=== PATIENT | female | born 1985 | race Caucasian/White ===

== ENCOUNTER → 2019-02-17 | Outpatient (CLI) | payer OTHER ==
[~2019-02-17] MED LIST: ABAC300; ACEBUTCAFT PO; ACET250 PO; ACET325 PO; ACET500ER PO; ACYC800 PO; ALBU90OI INH; ALBU90OI6 INH; ALBU90OI61 INH; AMIT25 PO; AMOCLA875 PO; AMOX500 PO; AMPDEX10 PO; AMPDEX15CR PO; ASPI325 PO; AZIT250 PO; AZIT500 IV; BCP; BCP'S PO; BENZ100A PO; BUPR150ER PO; BUTONI; CEPH250SUA PO; CEPH500 PO; CIPR500 PO; CITA20 PO; CLIN1TS TOP; CLON.5 PO; CODACEE120 PO; DABI150C PO; DEXILANT PO; DEXL60CA3 PO; DHE; DHE IM; DHE PO; DIAZ10 PO; DICL25ER PO; DICLOFENAC POTASSIUM; DILAUDID 11 MG/1 ML PO; DIPATR PO; DOCU100 PO; DOXY100 PO; DULO30 PO; ED-SPAZ0.125 MG SL; ENOX100I; ENOX100I SQ; ENOX30I SQ; ENOX40I SQ; ENOX80I SC; ESZO3 PO; Emla Cream30 GM TP; FENT25TP TOP; FENTANYL 12 MCG/HR TOP; FIBER CHOICE; FIBER LAX625 MG PO; FLUC200 PO; FLUO20 PO; GABA300 PO; GABA600 PO; HYCOTUSS; HYDACE5 PO; HYDACE7.5 PO; HYDACE7.5L PO; HYDHCL25 PO; HYDMOR4 PO; HYOMAX; IBUP200 PO; KAPIDEX; LANS15EC PO; LEVSOD25 PO; LEVSOD75 PO; LORA1 PO; MAGIC MOUTHWASH; MELA3 PO; MEPRON PO; META800 PO; METPRE4DP PO; MULVITA PO; MUPI2TO TOP; NAPR500 PO; NATURE THYROID PO; NORT25 PO; NORTEL; NORTEL PO; NYST100TO TOP; NYSTRI30T TOP; ONDA8 PO; ONDA8ODT MM; OXYACE5T PO; OXYACE7.5T PO; OXYC20L PO; PANT40 PO; PARO20 PO; PARO30 PO; PAROXETINE PO; PENVK500 PO; PNV PRENATAL P1 EACH PO; PREG100 PO; PROB500 PO; PROC10 PO; PROCODE120 PO; PROM25 INJ; PROM25 PO; PROM25S PR; PROMETHAZINE IV; PROP60 PO; Peridex480 ML SS; RIFA300 PO; RXALBOI INH; RXCLIN PO; RXHYDACE PO; RXHYDMOR2 PO; RXPROCODSY PO; RXTRAM50 PO; SCOPTP TOP; STADOL; SUMA25 PO; TIZANIDINE HCL4 MG PO; TOPI100 PO; TOPI50 PO; TRAM50 PO; TRAZ100 PO; TRAZ50 PO; VENL75ER PO; WARF5 PO; XARELTO20 MG PO; ZIPSOR25 MG PO; ZOLM5 PO; ZOLM5ODT MM; Zofran Odt4 MG SL; [UNRECOGNIZED DRUG - CODE] PO; [UNRECOGNIZED DRUG - OTHER]; [UNRECOGNIZED DRUG - OTHER]; [UNRECOGNIZED DRUG - OTHER]; [UNRECOGNIZED DRUG - OTHER] PO; [UNRECOGNIZED DRUG - OTHER] PO; [UNRECOGNIZED DRUG - REMARK] PO
[2019-02-17 17:04] LABS: BASOPHILS ABSOLUTE AUTO 0.03 K/mm3 (0.00-0.23); BASOPHILS PERCENT AUTO 0 % (0-2); EOSINOPHILS ABSOLUTE AUTO 0.05 K/mm3 (0.00-0.68); EOSINOPHILS PERCENT AUTO 1 % (0-6); Hematocrit 41.8 % (33.0-51.0); Hemoglobin 14.3 g/dL (11.5-16.0); IMMATURE GRAN ABSOLUTE AUTO 0.02 K/mm3 (0.00-0.10); IMMATURE GRAN PERCENT AUTO 0 % (0-1); LYMPHOCYTES ABSOLUTE AUTO 2.72 K/mm3 (0.84-5.20); LYMPHOCYTES PERCENT AUTO 26 % (21-46); MONOCYTES ABSOLUTE AUTO 0.44 K/mm3 (0.16-1.47); MONOCYTES PERCENT AUTO 4 % (4-13); Mean Corpuscular HGB 29.9 pg (26.0-34.0); Mean Corpuscular HGB Conc 34.2 g/dL (31.5-36.5); Mean Corpuscular Volume 87 fL (80-100); Mean Platelet Volume 9.5 fL (9.1-12.4); NEUTROPHILS ABSOLUTE AUTO 7.27 K/mm3 (1.96-9.15); NEUTROPHILS PERCENT AUTO 69 % (41-73); Platelet Count 283 K/mm3 (150-400); RDW Coefficient Variation 12.8 % (11.7-14.2); RDW Standard Deviation 40.7 fL (35.1-46.3); Red Blood Cell Count 4.78 M/mm3 (3.80-5.20); White Blood Cell Count 10.53 K/mm3 (4.00-11.30)
[2019-02-17 17:31] LABS: Alanine Aminotransfer (ALT/SGP 24 U/L (12-78); Albumin, Blood 3.9 g/dL (3.4-5.0); Albumin/Globulin Ratio 1.1 (0.8-1.8); Alk Phos 91 U/L (40-126); Anion Gap 6 mmol/L (6-16); Aspartate Aminotrans (AST/SGOT 24 U/L (12-37); Bilirubin, Total 0.2 mg/dL (0.1-1.0); Blood Urea Nitrogen 5 mg/dL (8-24); Bun/Creatinine Ratio 6.5 (12.0-20.0); CO2, Blood 28 mmol/L (21-32); Calcium, Blood 9.2 mg/dL (8.5-10.1); Chloride, Blood 104 mmol/L (98-108); Creatinine, Blood 0.77 mg/dL (0.40-1.00); Globulin, Blood 3.6 g/dL (2.2-4.0); Glomerular Filtration Rate >60 (60-); Glucose, Blood 99 mg/dL (70-99); Potassium, Blood 3.8 mmol/L (3.5-5.5); Sodium, Blood 138 mmol/L (136-145); Thyroid Stimulating Hormone 2.721 uIU/mL (0.360-4.800); Total Protein, Blood 7.5 g/dL (6.4-8.2)
== END | disposition home or self-care (01) ==
LOC: LAB SHORT 16:53 → LAB EV 16:53
PROVIDERS: Physician Assistant
DX: R11.2 Nausea with vomiting, unspecified (principal); R53.83 Other fatigue
CPT/HCPCS: 80053; 83690; 84443; 85025

== ENCOUNTER → 2019-04-22 | Outpatient (CLI) | payer OTHER ==
[2019-04-24 15:07] LABS: HPV 16 Negative (Negative); HPV 18 Negative (Negative); HPV OTHER HR TYPES Negative (Negative)
== END | disposition home or self-care (01) ==
LOC: LAB 15:00 → LAB SHORT 15:00
PROVIDERS: Obstetrics & Gynecology
DX: Z01.419 Encounter for gynecological examination (general) (routine) without abnormal findings (principal)
CPT/HCPCS: 87624; G0123

== ENCOUNTER → 2019-11-17 | Outpatient (CLI) | payer OTHER ==
[2019-11-17 14:28] LABS: BASOPHILS ABSOLUTE AUTO 0.04 K/mm3 (0.00-0.23); BASOPHILS PERCENT AUTO 0 % (0-2); EOSINOPHILS ABSOLUTE AUTO 0.06 K/mm3 (0.00-0.68); EOSINOPHILS PERCENT AUTO 1 % (0-6); Hematocrit 45.6 % (33.0-51.0); Hemoglobin 15.2 g/dL (11.5-16.0); IMMATURE GRAN ABSOLUTE AUTO 0.02 K/mm3 (0.00-0.10); IMMATURE GRAN PERCENT AUTO 0 % (0-1); LYMPHOCYTES ABSOLUTE AUTO 2.67 K/mm3 (0.84-5.20); LYMPHOCYTES PERCENT AUTO 29 % (21-46); MONOCYTES ABSOLUTE AUTO 0.42 K/mm3 (0.16-1.47); MONOCYTES PERCENT AUTO 5 % (4-13); Mean Corpuscular HGB 28.5 pg (26.0-34.0); Mean Corpuscular HGB Conc 33.3 g/dL (31.5-36.5); Mean Corpuscular Volume 85 fL (80-100); Mean Platelet Volume 9.6 fL (9.1-12.4); NEUTROPHILS ABSOLUTE AUTO 6.04 K/mm3 (1.96-9.15); NEUTROPHILS PERCENT AUTO 65 % (41-73); Platelet Count 282 K/mm3 (150-400); RDW Coefficient Variation 13.3 % (11.7-14.2); RDW Standard Deviation 41.3 fL (35.1-46.3); Red Blood Cell Count 5.34 M/mm3 (3.80-5.20); White Blood Cell Count 9.25 K/mm3 (4.00-11.30)
[2019-11-17 14:39] LABS: Alanine Aminotransfer (ALT/SGP 26 U/L (12-78); Albumin, Blood 3.9 g/dL (3.4-5.0); Alk Phos 91 U/L (40-126); Anion Gap 13 mmol/L (6-16); Aspartate Aminotrans (AST/SGOT 21 U/L (12-37); Bilirubin, Total 0.2 mg/dL (0.1-1.0); Blood Urea Nitrogen 6 mg/dL (8-24); Bun/Creatinine Ratio 8.3 (12.0-20.0); CO2, Blood 21 mmol/L (21-32); Chloride, Blood 109 mmol/L (98-108); Creatinine, Blood 0.72 mg/dL (0.40-1.00); Globulin, Blood 4.1 g/dL (2.2-4.0); Glomerular Filtration Rate >60 (60-); Glucose, Blood 97 mg/dL (70-99); Potassium, Blood 3.7 mmol/L (3.5-5.5); Sodium, Blood 143 mmol/L (136-145)
== END | disposition home or self-care (01) ==
LOC: LAB EV 14:24 → LAB SHORT 14:24
PROVIDERS: Physician Assistant Medical
DX: R11.2 Nausea with vomiting, unspecified (principal); R19.7 Diarrhea, unspecified
CPT/HCPCS: 80053; 83690; 85025

== ENCOUNTER 2021-03-01 11:21 | Inpatient (IN) | payer MEDICARE, OTHER ==
[~2021-03-01] VITALS: Ht 162.6 cm; Wt 98.4 kg
[~2021-03-01 11:21] MED LIST changes: -XARELTO20 MG PO
[2021-03-01 15:42] LABS: Hematocrit 44.6 % (33.0-51.0); Mean Corpuscular HGB 28.4 pg (26.0-34.0); Mean Corpuscular HGB Conc 33.6 g/dL (31.5-36.5); Mean Corpuscular Volume 85 fL (80-100); RDW Coefficient Variation 13.2 % (11.7-14.2); RDW Standard Deviation 41.3 fL (35.1-46.3); Red Blood Cell Count 5.28 M/mm3 (3.80-5.20); White Blood Cell Count 3.87 K/mm3 (4.00-11.30)
[2021-03-01 15:44] LABS: Mean Platelet Volume 10.2 fL (9.1-12.4)
[2021-03-01 15:57] LABS: Alanine Aminotransfer (ALT/SGP 43 U/L (12-78); Albumin, Blood 3.3 g/dL (3.4-5.0); Albumin/Globulin Ratio 0.8 (0.8-1.8); Alk Phos 73 U/L (50-136); Anion Gap 8 mmol/L (6-16); Aspartate Aminotrans (AST/SGOT 78 U/L (12-37); Bilirubin, Total 0.3 mg/dL (0.1-1.0); Blood Urea Nitrogen 8 mg/dL (8-24); Bun/Creatinine Ratio 12.7 (12.0-20.0); CO2, Blood 20 mmol/L (21-32); Calcium, Blood 8.4 mg/dL (8.5-10.1); Chloride, Blood 109 mmol/L (98-108); Creatinine, Blood 0.63 mg/dL (0.40-1.00); Ferritin, Serum 179 ng/mL (8-252); Globulin, Blood 3.9 g/dL (2.2-4.0); Glomerular Filtration Rate >60 (60-); Glucose, Blood 92 mg/dL (70-99); Lactate Dehydrogenase (Ld),Bld 786 U/L (100-240); Potassium, Blood 3.5 mmol/L (3.5-5.5); Sodium, Blood 137 mmol/L (136-145); Total Protein, Blood 7.2 g/dL (6.4-8.2)
[2021-03-01 16:01] LABS: Troponin I <0.015 ng/mL (0.000-0.040)
[2021-03-01 16:02] LABS: BAND PERCENT MAN 3 % (0-8); BASOPHILS ABSOLUTE MAN 0.03 K/mm3 (0.00-0.23); BASOPHILS PERCENT MAN 1 % (0-2); EOSINOPHILS PERCENT MAN 0 % (0-6); LYMPHOCYTES ABSOLUTE MAN 0.92 K/mm3 (0.84-5.20); LYMPHOCYTES PERCENT MAN 24 % (21-46); MONOCYTES ABSOLUTE MAN 0.03 K/mm3 (0.16-1.47); MONOCYTES PERCENT MAN 1 % (4-13); NEUTROPHILS ABSOLUTE MAN 2.86 K/mm3 (1.96-9.15); SEG NEUTROPHILS PERCENT MAN 71 % (41-73); TOTAL CELLS COUNTED 100
[2021-03-01 16:03] LABS: Platelet Count 136 K/mm3 (150-400)
[2021-03-01] MEDS ORDERED: MS Contin15 MG PO (16:16)
[2021-03-01] MEDS ORDERED: Ventolin/Prove6.7 GM INH (16:17)
[2021-03-01] MEDS ORDERED: AMPDEX10 PO (16:18)
[2021-03-01] MEDS ORDERED: Amphetamine Sal20 MG PO (16:18)
[2021-03-01] MEDS ORDERED: AMITRIPTYLINE H25 MG PO (16:19)
[2021-03-01] MEDS ORDERED: ACET250 PO (16:19)
[2021-03-01] MEDS ORDERED: DEXILANT60 MG PO (16:19)
[2021-03-01] MEDS ORDERED: PAXIL40 M1 PO (16:20)
[2021-03-01] MEDS ORDERED: BACLOFEN10 M4 PO (16:20)
[2021-03-01] MEDS ORDERED: XARELTO20 MG PO (16:56)
[2021-03-01] MEDS ORDERED: Dilaudid 2 mg Ta2 MG PO (16:57)
[2021-03-01] MEDS ORDERED: PSEUDOEPHEDRINE30 M1 PO (16:58)
--- NOTE | 2021-03-01 19:16 | NUR ---
SHIFT SUMMARY ED ADMIT AT SHIFT CHANGE. PATIENT SHORT OF BREATH WITH ANY MOVEMENT, MAINTAINING OXYGEN SATURATION AT 92% AT 4-6L/NC. SETTLED INTO ROOM. REPORT GIVEN TO ONCOMING RN.
[2021-03-01] MEDS ORDERED: ONDA4ODT PO (20:16)
[2021-03-01] MEDS ORDERED: PROM25 PO (20:17)
[2021-03-01] MEDS ORDERED: ZOLM5 PO (20:22)
[2021-03-01] MEDS ORDERED: ALBUTEROL INH (20:54)
[2021-03-02 05:19] LABS: BASOPHILS PERCENT AUTO 0 % (0-2); EOSINOPHILS PERCENT AUTO 0 % (0-6); Hematocrit 39.9 % (33.0-51.0); Hemoglobin 13.5 g/dL (11.5-16.0); IMMATURE GRAN ABSOLUTE AUTO 0.01 K/mm3 (0.00-0.10); IMMATURE GRAN PERCENT AUTO 1 % (0-1); LYMPHOCYTES ABSOLUTE AUTO 0.64 K/mm3 (0.84-5.20); LYMPHOCYTES PERCENT AUTO 38 % (21-46); MONOCYTES PERCENT AUTO 6 % (4-13); Mean Corpuscular HGB Conc 33.8 g/dL (31.5-36.5); Mean Corpuscular Volume 83 fL (80-100); Mean Platelet Volume 10.2 fL (9.1-12.4); NEUTROPHILS ABSOLUTE AUTO 0.94 K/mm3 (1.96-9.15); NEUTROPHILS PERCENT AUTO 56 % (41-73); Platelet Count 150 K/mm3 (150-400); RDW Coefficient Variation 13.2 % (11.7-14.2); Red Blood Cell Count 4.83 M/mm3 (3.80-5.20); White Blood Cell Count 1.69 K/mm3 (4.00-11.30)
--- NOTE | 2021-03-02 05:36 | NUR ---
SHIFT SUMMARY: AOX3, ANXIOUS MOST OF THE TIME. 1 ASSIST TO THE BSC DUE TO DIZZINESS. ORTHOSTATICS COMPLETED NORMAL. LUNG SOUNDS CLEAR IN UPPER LOBES BUT CRACKLES IN BASES. DYSPENIC WITH TACHYPNEA. CONT. PULSE OX ON SATS AVERAGE 88-91% AT REST ON 4L OF O2. COUGH NON-PRODUCTIVE. STATES SHE HAS MUCUS THAT GETS STUCK IN HER THROAT. RT STARTED HER ON INSPIROMETER. HR SINUS. ABDOMIN SOFT, HYPERACTIVE BT. HX OF IBS WITH TWO LOOSE STOOLS TONIGHT. NO EDEMA NOTED. IV IN LEFT SHOULDER SLIGHTLY HOLDING BUT FLUSHES. AT RISK OF FALLING OUT. INFORMED CHARGE THAT SHE WILL NEED A POWERGLIDE. D-DIMER 0.87, WBC DROPPED TO 1.69. VS WNL EXCEPT RESPIRATIONS ARE FROM 20-40 DEPENDED ON MOVEMENT. WILL REPORT TO DAYSHIFT. CALL LIGHT IS IN REACH.
[2021-03-02 05:54] LABS: Anion Gap 10 mmol/L (6-16); Blood Urea Nitrogen 10 mg/dL (8-24); Bun/Creatinine Ratio 19.6 (12.0-20.0); CO2, Blood 18 mmol/L (21-32); Calcium, Blood 8.2 mg/dL (8.5-10.1); Chloride, Blood 112 mmol/L (98-108); Creatinine, Blood 0.51 mg/dL (0.40-1.00); Glomerular Filtration Rate >60 (60-); Glucose, Blood 130 mg/dL (70-99); Potassium, Blood 2.8 mmol/L (3.5-5.5); Sodium, Blood 140 mmol/L (136-145)
--- NOTE | 2021-03-02 11:23 | NUR ---
UPON ASSUMING CARE OF PT AT SHIFT CHANGE, PER REPORT PT WAS ON 4 L/MIN NC. DURING MY ASSESSMENT, SHE WAS ACTUALLY ON 5 L/MIN NC, OXIMETRY SHOWED 88-89% AND SHE WOULD DESAT TO 84-86% WITH TALKING OR MOVING. OXYGEN INCREASED TO 6 L/MIN NC AND HUMIDIFICATION ADDED. RESULTING SATURATION WENT HIGH 90%, BUT SHE WAS UNABLE TO MAINTAIN THIS, AND DESATTED TO 85%. UPON GETTING TO BSC AT ~ 0950, O2 SAT DROPPED TO 74%, C/O SOME DIZZINESS. COARSE CRACKLES NOTED IN RLL, OTHER LUNG GERMAN CLEAR. CALL MADE TO Radha ROPER FROM RT,REQUESTING HIGH FLOW OXYGEN TUBING. UPON RT ASSESSMENT, OXYGEN INCREASED TO 10 L/MIN HIGH FLOW NC WITH O2 SAT 92-93%, AND PT GIVEN INSTRUCTIONS BY RT TO GET OOB TO CHAIR AND CHANGE HER POSITION FREQUENTLY. INCREASE IN OXYGEN NEEDS REPORTED TO DR. RUIZ AT 1100, DECISION WAS MADE TO TRANSFER PT TO PCU.
--- NOTE | 2021-03-02 11:40 | NUR ---
TELEPHONE REPORT GIVEN TO Sonia AKHTAR RN.
[2021-03-02 12:33] LABS: PCO2 Arterial 31.2 mmHg (35-45); PO2 Arterial 56.3 mmHg (80-100); pH Blood Arterial 7.39 (7.35-7.45)
[2021-03-02 13:52] LABS: Base Excess Venous -7.7 mmol/L; Bicarbonate Venous 18.8 mmol/L (24.0-30.0); PCO2 Venous 33.4 mmHg (38-42); PO2 Venous 54.1 mmHg (38-42); pH Blood Venous 7.34 (7.34-7.37)
[2021-03-02 13:58] LABS: BASOPHILS PERCENT AUTO 0 % (0-2); EOSINOPHILS PERCENT AUTO 0 % (0-6); Hematocrit 41.4 % (33.0-51.0); Hemoglobin 13.9 g/dL (11.5-16.0); IMMATURE GRAN ABSOLUTE AUTO 0.03 K/mm3 (0.00-0.10); IMMATURE GRAN PERCENT AUTO 1 % (0-1); LYMPHOCYTES ABSOLUTE AUTO 0.75 K/mm3 (0.84-5.20); LYMPHOCYTES PERCENT AUTO 12 % (21-46); MONOCYTES ABSOLUTE AUTO 0.13 K/mm3 (0.16-1.47); MONOCYTES PERCENT AUTO 2 % (4-13); Mean Corpuscular HGB 27.9 pg (26.0-34.0); Mean Corpuscular HGB Conc 33.6 g/dL (31.5-36.5); Mean Corpuscular Volume 83 fL (80-100); Mean Platelet Volume 9.9 fL (9.1-12.4); NEUTROPHILS ABSOLUTE AUTO 5.23 K/mm3 (1.96-9.15); NEUTROPHILS PERCENT AUTO 85 % (41-73); Platelet Count 170 K/mm3 (150-400); RDW Coefficient Variation 13.2 % (11.7-14.2); RDW Standard Deviation 40.5 fL (35.1-46.3); Red Blood Cell Count 4.99 M/mm3 (3.80-5.20); White Blood Cell Count 6.14 K/mm3 (4.00-11.30)
[2021-03-02 14:17] LABS: Anion Gap 9 mmol/L (6-16); Blood Urea Nitrogen 12 mg/dL (8-24); Bun/Creatinine Ratio 21.4 (12.0-20.0); CO2, Blood 19 mmol/L (21-32); Calcium, Blood 8.3 mg/dL (8.5-10.1); Chloride, Blood 113 mmol/L (98-108); Creatinine, Blood 0.56 mg/dL (0.40-1.00); Glomerular Filtration Rate >60 (60-); Glucose, Blood 140 mg/dL (70-99); Sodium, Blood 141 mmol/L (136-145)
--- NOTE | 2021-03-02 18:37 | NUR ---
SHIFT SUMMARY PATIENT ARRIVED FROM MEDICAL ON 10 L VIA HIGH FLOW NASAL CANNULA, SWITCHED OVER TO AIRVO, SATS IMPROVED AND MAINTAINING IN LOW 90S FOR REST OF SHIFT. PATIENT IS ANXIOUS AND CRIES AT TIMES, BUT IS ALERT AND ORIENTED AND CALLS APPROPRIATELY. STANDBY ASSIST TO BEDSIDE COMMODE, O2 SATS WILL DIP TO HIGH 80S WITH AMBULATION AT TIMES. PATIENT COMPLAINS OF CHILLS, BLANKET PROVIDED. PATIENT COMPLAINS OF LOW APPETITE, WATER, JUICE AND CRACKERS PROVIDED.
[2021-03-02 20:11] LABS: pH Blood Arterial 7.39 (7.35-7.45)
[2021-03-02 20:12] LABS: PCO2 Arterial 25.2 mmHg (35-45); PO2 Arterial 71.3 mmHg (80-100)
[2021-03-03 04:17] LABS: Hematocrit 41.3 % (33.0-51.0); Hemoglobin 14.1 g/dL (11.5-16.0); Mean Corpuscular HGB 28.4 pg (26.0-34.0); Mean Corpuscular HGB Conc 34.1 g/dL (31.5-36.5); Mean Corpuscular Volume 83 fL (80-100); Mean Platelet Volume 10.2 fL (9.1-12.4); Platelet Count 225 K/mm3 (150-400); RDW Coefficient Variation 13.4 % (11.7-14.2); RDW Standard Deviation 41.1 fL (35.1-46.3); Red Blood Cell Count 4.96 M/mm3 (3.80-5.20)
[2021-03-03 04:27] LABS: PO2 Arterial 68.1 mmHg (80-100)
[2021-03-03 04:28] LABS: PCO2 Arterial 25.9 mmHg (35-45); pH Blood Arterial 7.38 (7.35-7.45)
[2021-03-03 04:32] LABS: Anion Gap 8 mmol/L (6-16); Blood Urea Nitrogen 13 mg/dL (8-24); Bun/Creatinine Ratio 22.5 (12.0-20.0); CO2, Blood 18 mmol/L (21-32); Calcium, Blood 8.6 mg/dL (8.5-10.1); Chloride, Blood 116 mmol/L (98-108); Creatinine, Blood 0.58 mg/dL (0.40-1.00); Glomerular Filtration Rate >60 (60-); Glucose, Blood 133 mg/dL (70-99); Potassium, Blood 3.5 mmol/L (3.5-5.5); Sodium, Blood 142 mmol/L (136-145)
[2021-03-03 04:36] LABS: BAND PERCENT MAN 23 % (0-8); BASOPHILS PERCENT MAN 0 % (0-2); EOSINOPHILS PERCENT MAN 0 % (0-6); LYMPHOCYTES ABSOLUTE MAN 1.27 K/mm3 (0.84-5.20); LYMPHOCYTES PERCENT MAN 4 % (21-46); METAMYELOCYTE ABSOLUTE MAN 0.95 K/mm3 (0.00-0.00); METAMYELOCYTE PERCENT MAN 3 % (0-0); MONOCYTES ABSOLUTE MAN 0.95 K/mm3 (0.16-1.47); MONOCYTES PERCENT MAN 3 % (4-13); MYELOCYTE ABSOLUTE MAN 0.31 K/mm3 (0.00-0.00); MYELOCYTE PERCENT MAN 1 % (0-0); NEUTROPHILS ABSOLUTE MAN 28.39 K/mm3 (1.96-9.15); SEG NEUTROPHILS PERCENT MAN 66 % (41-73); TOTAL CELLS COUNTED 100
--- NOTE | 2021-03-03 05:32 | NUR ---
SHIFT SUMMARY PT PRESENTS VERY ANXIOUS BUT COOPERATIVE. ANXIETY APPEARS TO PLACE A HUGE ROLE IN RESPIRATORY STATUS. WHILE GETTING UP, UNCOMFORTABLE, OR IN NEED OF COMPANY, PTS ANXIETY CAUSES TACHYPNEA INTO THE 50'S. OCCASIONALLY WILL DESAT WITH THIS INTO MID 80'S. OTHERWISE, PT USUALLY 90% -94%. PT AGREED TO PRONE FOR AROUND 6HRS THIS SHIFT, DURING THIS TIME, SPO2 >97%. PT REMAINS ON AIRVO, 50L 65% FIO2. PT HAS TOLERATED GETTINGN UP TO BSC WITH ASSISTANCE WITH LINES. POWERGLIDE STABLE, DRAWS WELL. OTHERWISE, PT USING CALL LIGHT APPROPRIATELY. REMAINS IN AIRBORNE ISOLATION.
--- NOTE | 2021-03-03 19:51 | NUR ---
NO ACUTE EVENTS THIS SHIFT, PATIENT ALERT AND ORIENTED AND COOPERATIVE WITH CARE. PATIENT WAS ANXIOUS AND TEARFUL AT TIMES, CALMING DEEP BREATHING TECHNIQUES ENCOURAGED, XANAX GIVEN PER EMAR FOR ANXIETY. ON AIRVO AT START OF SHIFT, BY END OF SHIFT RT SWITCHED PATIENT OVER TO HIGH FLOW NASAL CANNULA AT 15 LPM. O2 SATS WOULD DECREASE AT TIMES TO LOW-MID 80S WITH ACTIVITY, WOULD RECOVER QUICKLY AT REST TO LOW-MID 90S. PATIENT GIVEN DEEP SEA NASAL SPRAY PER EMAR, ENDORSED SOME RELEIF OF DRY NASAL PASAGES. PATIENT WOULD REPOSITION SELF IN BED FROM SIDE TO SIDE THROUGHOUT DAY. THIS RN ASSISTED TO BEDSIDE COMMODE T/O SHIFT.
[2021-03-04 05:09] LABS: Hematocrit 40.1 % (33.0-51.0); Hemoglobin 13.5 g/dL (11.5-16.0); Mean Corpuscular HGB 28.6 pg (26.0-34.0); Mean Corpuscular HGB Conc 33.7 g/dL (31.5-36.5); Mean Corpuscular Volume 85 fL (80-100); Mean Platelet Volume 9.7 fL (9.1-12.4); Platelet Count 217 K/mm3 (150-400); RDW Coefficient Variation 13.4 % (11.7-14.2); Red Blood Cell Count 4.72 M/mm3 (3.80-5.20); White Blood Cell Count 25.37 K/mm3 (4.00-11.30)
[2021-03-04 05:36] LABS: BAND PERCENT MAN 10 % (0-8); BASOPHILS PERCENT MAN 0 % (0-2); EOSINOPHILS PERCENT MAN 0 % (0-6); LYMPHOCYTES % ATYPICAL MANUAL 1 % (0-0); LYMPHOCYTES ABSOLUTE MAN 1.26 K/mm3 (0.84-5.20); LYMPHOCYTES PERCENT MAN 4 % (21-46); MONOCYTES PERCENT MAN 0 % (4-13); MYELOCYTE ABSOLUTE MAN 0.25 K/mm3 (0.00-0.00); MYELOCYTE PERCENT MAN 1 % (0-0); NEUTROPHILS ABSOLUTE MAN 23.84 K/mm3 (1.96-9.15); SEG NEUTROPHILS PERCENT MAN 84 % (41-73); TOTAL CELLS COUNTED 100
[2021-03-04 05:48] LABS: Anion Gap 6 mmol/L (6-16); Blood Urea Nitrogen 18 mg/dL (8-24); Bun/Creatinine Ratio 29.2 (12.0-20.0); CO2, Blood 22 mmol/L (21-32); Calcium, Blood 7.9 mg/dL (8.5-10.1); Chloride, Blood 113 mmol/L (98-108); Creatinine, Blood 0.62 mg/dL (0.40-1.00); Glomerular Filtration Rate >60 (60-); Glucose, Blood 126 mg/dL (70-99); Potassium, Blood 3.4 mmol/L (3.5-5.5); Sodium, Blood 141 mmol/L (136-145)
--- NOTE | 2021-03-04 05:57 | NUR ---
SHIFT SUMMARY NO ACUTE CHANGES THIS SHIFT. VSS. REMAINS ON 15L HIFLO, PT TOLERATING THIS WELL. ANXIETY HAS PRESENTED MUCH LESS SEVERE THIS SHIFT VS LASE, INCREASED SPO2 READINGS, DECREASED WOB, AND RR 20'S INSTEAD OF 30'S-40'S. THIS APPEARS TO BE A RESULT OF THE PRN XANAX PT STARTED ON WELL IMPROVING RESPIRATORY FUNCTION. PT AGREED TO PRONE THIS SHIFT FOR AROUND 4-5 HOURS. POWERGLIE REMAINS INTACT, NOT DRAWING BLOOD CURRENTLY. REMAINS IN AIRBORE ISOLATION.
--- NOTE | 2021-03-04 18:31 | NUR ---
SHIFT SUMMARY NO ACUTE EVENTS THIS SHIFT, PT ALERT AND ORIENTED AND ABLE TO CALL APPROPRIATELY. PT ASSISTED TO RECLINER AT START OF SHIFT, STANDBY ASSIST TO BEDSIDE COMMODE FOR LINE MANAGEMENT. PT REMAINED IN RECLINER FOR REST OF SHIFT. O2 TITRATED DOWN TO 10 LPM VIA HIGH FLOW NASAL CANNULA. WITH ACTIVITY O2 SATS WOULD DECREASE TO 80S, AT TIMES WHEN PT WAS SLEEPING AND HEAD WAS LEANED FORWARD O2 SATS WOULD DECREASE TO 80S. WHEN REMINDED TO BREATH THROUGH NOSE O2 SATS WOULD RECOVER TO 90S. PT COMPLAINED OF PAIN/DISCOMFORT AT TIMES, PROVIDED PILLOWS AND BLANKETS AND ASSISTED WITH REPOSITIONING, PAIN MEDS ADMINISTERED PER EMAR.
--- NOTE | 2021-03-04 21:43 | NUR ---
RESPIRATORY PT ON 10L HIFLO AT BEGINNING OF SHIFT. AROUND 1999, PT SPO2 DOWN TO 80%. THIS RN TO ROOM. TITRATED UP TO 15L. REPOSITIONED PT. NO SUCCESS NOTED TO BRINGING PT UP ABOVE 88%. ANXIETY MEDICATION HAD ALREADY BEEN ADMINISTERED AND PT NOT PRESENTING ANXIOUS AT THIS TIME. RR 24. RT TO ROOM. UNABLE TO BRING SATS UP. PT PLACED ON AIRVO. PT NOT TOLERATING HIGH PRESSURES SO END SETTINGS CURRENTLY ARE: AIRVO 30L 70%. SPO2 92% CURRENTLY.
--- NOTE | 2021-03-05 02:22 | NUR ---
RESPIRATORY 0100 THIS RN TO ROOM. PT SPO2 80%. PT IN FOWLERS POSITION AGAIN. TITRATED UP TO 100% ON 30L DUE TO NOT TOLERATING HIGH PRESSURES. PT UP TO BSC. ANXIETY & PAIN MEDICATION ADMINISTERED. PT TOLD SHE NEEDED TO PRONE AGAIN DUE TO LOW SPO2 AND WOB. PT AGREES. PT ASSISTED WITH PRONING. PT NOW ON AIRVO 30L 70%. SPO2 94%.
[2021-03-05 04:38] LABS: BASOPHILS ABSOLUTE AUTO 0.14 K/mm3 (0.00-0.23); BASOPHILS PERCENT AUTO 1 % (0-2); EOSINOPHILS PERCENT AUTO 0 % (0-6); Hematocrit 38.6 % (33.0-51.0); Hemoglobin 13.1 g/dL (11.5-16.0); IMMATURE GRAN ABSOLUTE AUTO 1.23 K/mm3 (0.00-0.10); IMMATURE GRAN PERCENT AUTO 5 % (0-1); LYMPHOCYTES ABSOLUTE AUTO 2.69 K/mm3 (0.84-5.20); LYMPHOCYTES PERCENT AUTO 11 % (21-46); MONOCYTES ABSOLUTE AUTO 0.78 K/mm3 (0.16-1.47); MONOCYTES PERCENT AUTO 3 % (4-13); Mean Corpuscular HGB 28.4 pg (26.0-34.0); Mean Corpuscular HGB Conc 33.9 g/dL (31.5-36.5); Mean Corpuscular Volume 84 fL (80-100); Mean Platelet Volume 9.6 fL (9.1-12.4); NEUTROPHILS ABSOLUTE AUTO 19.58 K/mm3 (1.96-9.15); NEUTROPHILS PERCENT AUTO 80 % (41-73); Platelet Count 234 K/mm3 (150-400); RDW Coefficient Variation 13.4 % (11.7-14.2); RDW Standard Deviation 41.2 fL (35.1-46.3); Red Blood Cell Count 4.62 M/mm3 (3.80-5.20); White Blood Cell Count 24.42 K/mm3 (4.00-11.30)
[2021-03-05 04:54] LABS: Albumin, Blood 2.8 g/dL (3.4-5.0); Anion Gap 7 mmol/L (6-16); Blood Urea Nitrogen 15 mg/dL (8-24); Bun/Creatinine Ratio 27.4 (12.0-20.0); CO2, Blood 24 mmol/L (21-32); Chloride, Blood 110 mmol/L (98-108); Creatinine, Blood 0.55 mg/dL (0.40-1.00); Glomerular Filtration Rate >60 (60-); Glucose, Blood 95 mg/dL (70-99); Phosphorus, Blood 2.5 mg/dL (2.5-4.9); Potassium, Blood 3.3 mmol/L (3.5-5.5); Sodium, Blood 141 mmol/L (136-145)
--- NOTE | 2021-03-05 05:52 | NUR ---
SHIFT SUMMARY SEE MULTIPLE RESPIRATORY NOTES. PT NOW PCU STATUS AGAIN. PT STARTED SHIFT AT 10L. HAS BEEN TITRATED TO 35L 100% FIO2. SPO2 HOLDING ABOVE 90% CURRENTLY. PT HAVING DIFFICULTIES MAINTAINING PRONE POSITION CURRENTLY DESPITE PRN XANAX AND PAIN MEDICATION. PT'S ANXIETY SEEMS TO BE BETTER THAN PREVIOUS NOC SHIFT. POWERGLIDE NOT PULLING BUT IS PATENT. PT REMAINS IN AIRBORNE. WHEN PRONING, SPO2 >95% BUT IT HAS BEEN DIFFICULT TO MAINTAIN SPO2 >88% WHEN IN FOWLERS/HIGH FOWLERS. PT USING CALL LIGHT APPROPRIATELY.
--- NOTE | 2021-03-05 18:10 | NUR ---
SHIFT SUMMARY PT SPENT MOST OF THE DAY IN A CHAIR WHICH GREATLY HELPED HER OXYGENATION. PT MOVED TO THE BED THIS EVENING JUST BEFORE DINNER. IT WAS REPORTED THAT ON NOC SHIFT THE PT WAS HAVING ANXIETY AND SHE WAS MEDICATED PER EMAR. PT DID NOT REPORT ANY ANXIETY UNTIL THIS EVENING. PT GOT SO AMPED UP THAT HER SATURATION DROPPED TO 82%. THE AIRVO SETTINGS WERE INCREASED DURING HER PANIC/ANXIETY ATTACK. ELIANA ROSS EXPLAINED HER UNDERSTANDING OF THE ANXIETY CAUSING OF HER SITUATION, I WAS COMPASSIONATE BUT PT NEEDS TO UNDERSTAND THE IMPORTANCE OF HEALTHY COPING MECHANISIMS WITH HER ANXIETY. ELIANA ROSS SUGGESTED THAT PT USED MUSIC, AUDIO BOOKS, BREATHING EXERCISES AND MEDITATION TO HELP WITH ANXIETY. PT GAVE UNDERSTANDING, BEGAN TAKING DEEP BREATHS AND AFTER A FEW MINUTES WAS CALM ENOUGH THAT HER OXYGEN SATURATION WAS UP TO 98% AND HER AIRVO SETTINGS ARE 35L AND 70%. PT IS RESTING IN BED, TALKING WITH FAMILY AND HAVING DINNER
[2021-03-06 04:14] LABS: BASOPHILS ABSOLUTE AUTO 0.15 K/mm3 (0.00-0.23); BASOPHILS PERCENT AUTO 1 % (0-2); EOSINOPHILS ABSOLUTE AUTO 0.01 K/mm3 (0.00-0.68); EOSINOPHILS PERCENT AUTO 0 % (0-6); Hematocrit 39.9 % (33.0-51.0); Hemoglobin 13.2 g/dL (11.5-16.0); IMMATURE GRAN ABSOLUTE AUTO 1.27 K/mm3 (0.00-0.10); IMMATURE GRAN PERCENT AUTO 7 % (0-1); LYMPHOCYTES ABSOLUTE AUTO 2.03 K/mm3 (0.84-5.20); LYMPHOCYTES PERCENT AUTO 11 % (21-46); MONOCYTES PERCENT AUTO 3 % (4-13); Mean Corpuscular HGB 27.8 pg (26.0-34.0); Mean Corpuscular HGB Conc 33.1 g/dL (31.5-36.5); Mean Corpuscular Volume 84 fL (80-100); Mean Platelet Volume 9.9 fL (9.1-12.4); NEUTROPHILS ABSOLUTE AUTO 15.24 K/mm3 (1.96-9.15); NEUTROPHILS PERCENT AUTO 79 % (41-73); Platelet Count 239 K/mm3 (150-400); RDW Coefficient Variation 13.1 % (11.7-14.2); RDW Standard Deviation 40.7 fL (35.1-46.3); Red Blood Cell Count 4.75 M/mm3 (3.80-5.20)
[2021-03-06 04:34] LABS: Albumin, Blood 2.6 g/dL (3.4-5.0); Anion Gap 5 mmol/L (6-16); Blood Urea Nitrogen 12 mg/dL (8-24); Bun/Creatinine Ratio 21.1 (12.0-20.0); CO2, Blood 27 mmol/L (21-32); Calcium, Blood 8.6 mg/dL (8.5-10.1); Chloride, Blood 108 mmol/L (98-108); Creatinine, Blood 0.57 mg/dL (0.40-1.00); Glomerular Filtration Rate >60 (60-); Glucose, Blood 103 mg/dL (70-99); Phosphorus, Blood 3.5 mg/dL (2.5-4.9); Potassium, Blood 3.8 mmol/L (3.5-5.5); Sodium, Blood 140 mmol/L (136-145)
[2021-03-06 04:35] LABS: BAND PERCENT MAN 4 % (0-8); BASOPHILS PERCENT MAN 0 % (0-2); EOSINOPHILS PERCENT MAN 0 % (0-6); LYMPHOCYTES ABSOLUTE MAN 1.54 K/mm3 (0.84-5.20); LYMPHOCYTES PERCENT MAN 8 % (21-46); METAMYELOCYTE ABSOLUTE MAN 0.19 K/mm3 (0.00-0.00); METAMYELOCYTE PERCENT MAN 1 % (0-0); MONOCYTES PERCENT MAN 0 % (4-13); NEUTROPHILS ABSOLUTE MAN 17.56 K/mm3 (1.96-9.15); SEG NEUTROPHILS PERCENT MAN 87 % (41-73); TOTAL CELLS COUNTED 100
--- NOTE | 2021-03-06 05:29 | NUR ---
SHIFT SUMMARY PATIENT FOUND TO BE AN ANXIOUS YOUNG LADY WHO IS A&OX4. ANXIETY AT BAY THROUGHOUT SHIFT WITH THERAPEUTIC COMMUNICATION AND BREATHING TECHNIQUES HELPING. PATIENT RESTING SOUNDLY FOR MOST OF SHIFT. SOME MOANING IN SLEEP. DILAUDID X1 GIVEN FOR GENERALIZED PAIN. NSR ON THE MONITOR IN THE 60'S. STARTED TO WEAN O2 BUT BACK UP NOW TO 35L 70%. ENCOURAGING PRONING AND PATIENT ABLE TO FOR SHORT PERIODS OF TIME. POOR APPETITE AND DID NOT EAT MUCH OF DINNER. UP WITH ONE TO BSC. NO ACUTE CONCERNS AT THIS TIME. WILL CONTINUE TO MONITOR UNTIL REPORT GIVEN TO DAYSHIFT RN.
[2021-03-07 04:39] LABS: BASOPHILS ABSOLUTE AUTO 0.08 K/mm3 (0.00-0.23); BASOPHILS PERCENT AUTO 1 % (0-2); EOSINOPHILS ABSOLUTE AUTO 0.05 K/mm3 (0.00-0.68); EOSINOPHILS PERCENT AUTO 0 % (0-6); Hematocrit 40.5 % (33.0-51.0); Hemoglobin 13.5 g/dL (11.5-16.0); IMMATURE GRAN ABSOLUTE AUTO 0.99 K/mm3 (0.00-0.10); IMMATURE GRAN PERCENT AUTO 7 % (0-1); LYMPHOCYTES ABSOLUTE AUTO 1.74 K/mm3 (0.84-5.20); LYMPHOCYTES PERCENT AUTO 11 % (21-46); MONOCYTES ABSOLUTE AUTO 0.59 K/mm3 (0.16-1.47); MONOCYTES PERCENT AUTO 4 % (4-13); Mean Corpuscular HGB 28.6 pg (26.0-34.0); Mean Corpuscular HGB Conc 33.3 g/dL (31.5-36.5); Mean Corpuscular Volume 86 fL (80-100); Mean Platelet Volume 10.1 fL (9.1-12.4); NEUTROPHILS ABSOLUTE AUTO 11.79 K/mm3 (1.96-9.15); NEUTROPHILS PERCENT AUTO 77 % (41-73); Platelet Count 263 K/mm3 (150-400); RDW Coefficient Variation 13.1 % (11.7-14.2); RDW Standard Deviation 40.7 fL (35.1-46.3); Red Blood Cell Count 4.72 M/mm3 (3.80-5.20); White Blood Cell Count 15.24 K/mm3 (4.00-11.30)
[2021-03-07 05:01] LABS: Albumin, Blood 2.7 g/dL (3.4-5.0); Anion Gap 6 mmol/L (6-16); Blood Urea Nitrogen 11 mg/dL (8-24); Bun/Creatinine Ratio 20.5 (12.0-20.0); CO2, Blood 29 mmol/L (21-32); Calcium, Blood 8.5 mg/dL (8.5-10.1); Chloride, Blood 102 mmol/L (98-108); Creatinine, Blood 0.54 mg/dL (0.40-1.00); Glomerular Filtration Rate >60 (60-); Glucose, Blood 127 mg/dL (70-99); Phosphorus, Blood 3.7 mg/dL (2.5-4.9); Potassium, Blood 3.6 mmol/L (3.5-5.5); Sodium, Blood 137 mmol/L (136-145)
[2021-03-07 05:09] LABS: BAND PERCENT MAN 2 % (0-8); BASOPHILS PERCENT MAN 0 % (0-2); EOSINOPHILS PERCENT MAN 2 % (0-6); LYMPHOCYTES ABSOLUTE MAN 1.21 K/mm3 (0.84-5.20); LYMPHOCYTES PERCENT MAN 8 % (21-46); METAMYELOCYTE PERCENT MAN 2 % (0-0); MONOCYTES PERCENT MAN 2 % (4-13); SEG NEUTROPHILS PERCENT MAN 84 % (41-73); TOTAL CELLS COUNTED 100
--- NOTE | 2021-03-07 06:01 | NUR ---
SHIFT SUMMARY PATIENT IS ALERT AND ORIENTED X4. ANXIOUS AT TIMES. INDEPENDENT WITH REPOSITIONING AND PRONES AT TIMES. MEDICATED FOR PAIN PER EMAR. 02 SATS 90-96% ON 35L 70% ON AIRVO. PATIENT INDEPENDENT UP TO BEDSIDE COMMODE. VSS, NO ACUTE CHANGES. CALL LIGHT IN REACH.
--- NOTE | 2021-03-07 18:15 | NUR ---
PT FREQUENTLY PRESENTS TEARFUL AND ANXIOUS IN SPITE OF PAIN RX AND ALPRAZOLAM PER MAR; PT REPORTS MISSING HER FAMILY; CLEAR LUNG SOUNDS WITH DIMINISHED BASES; PT SBA TO BSC AND VOIDED SEVERAL TIMES, CLEAR YELLOW URINE; VSS; FLETCHER; AIRVO 35L 70% OBTAINING LOW 90'S SATURATIONS; PT DENIES ADDITIONAL CONCERNS AT THIS TIME
[2021-03-08 04:20] LABS: BASOPHILS ABSOLUTE AUTO 0.06 K/mm3 (0.00-0.23); BASOPHILS PERCENT AUTO 0 % (0-2); EOSINOPHILS ABSOLUTE AUTO 0.12 K/mm3 (0.00-0.68); EOSINOPHILS PERCENT AUTO 1 % (0-6); Hematocrit 39.9 % (33.0-51.0); Hemoglobin 13.4 g/dL (11.5-16.0); IMMATURE GRAN ABSOLUTE AUTO 0.95 K/mm3 (0.00-0.10); IMMATURE GRAN PERCENT AUTO 6 % (0-1); LYMPHOCYTES ABSOLUTE AUTO 1.76 K/mm3 (0.84-5.20); LYMPHOCYTES PERCENT AUTO 11 % (21-46); MONOCYTES ABSOLUTE AUTO 0.75 K/mm3 (0.16-1.47); MONOCYTES PERCENT AUTO 5 % (4-13); Mean Corpuscular HGB 28.7 pg (26.0-34.0); Mean Corpuscular HGB Conc 33.6 g/dL (31.5-36.5); Mean Corpuscular Volume 85 fL (80-100); Mean Platelet Volume 9.9 fL (9.1-12.4); NEUTROPHILS ABSOLUTE AUTO 12.78 K/mm3 (1.96-9.15); NEUTROPHILS PERCENT AUTO 78 % (41-73); Platelet Count 281 K/mm3 (150-400); RDW Coefficient Variation 13.2 % (11.7-14.2); RDW Standard Deviation 40.1 fL (35.1-46.3); Red Blood Cell Count 4.67 M/mm3 (3.80-5.20); White Blood Cell Count 16.42 K/mm3 (4.00-11.30)
[2021-03-08 04:37] LABS: Albumin, Blood 2.6 g/dL (3.4-5.0); Anion Gap 6 mmol/L (6-16); Blood Urea Nitrogen 12 mg/dL (8-24); Bun/Creatinine Ratio 22.8 (12.0-20.0); CO2, Blood 27 mmol/L (21-32); Calcium, Blood 8.6 mg/dL (8.5-10.1); Chloride, Blood 102 mmol/L (98-108); Creatinine, Blood 0.53 mg/dL (0.40-1.00); Glomerular Filtration Rate >60 (60-); Glucose, Blood 148 mg/dL (70-99); Phosphorus, Blood 3.8 mg/dL (2.5-4.9); Sodium, Blood 135 mmol/L (136-145)
[2021-03-08 04:41] LABS: BAND PERCENT MAN 3 % (0-8); BASOPHILS PERCENT MAN 0 % (0-2); EOSINOPHILS ABSOLUTE MAN 0.32 K/mm3 (0.00-0.68); EOSINOPHILS PERCENT MAN 2 % (0-6); LYMPHOCYTES ABSOLUTE MAN 1.31 K/mm3 (0.84-5.20); LYMPHOCYTES PERCENT MAN 8 % (21-46); METAMYELOCYTE ABSOLUTE MAN 0.32 K/mm3 (0.00-0.00); METAMYELOCYTE PERCENT MAN 2 % (0-0); MONOCYTES ABSOLUTE MAN 0.49 K/mm3 (0.16-1.47); MONOCYTES PERCENT MAN 3 % (4-13); NEUTROPHILS ABSOLUTE MAN 13.95 K/mm3 (1.96-9.15); SEG NEUTROPHILS PERCENT MAN 82 % (41-73); TOTAL CELLS COUNTED 100
--- NOTE | 2021-03-08 06:17 | NUR ---
SHIFT SUMMARY PATIENT FOUND TO BE A VERY TIRED, PLEASANT LADY WHO IS A&OX4. CURRENTLY ON AIRVO 35L, 60% SATING LOW 90'S. DIAS IS SLOWLY IMPROVING. GETS TIRED WITH ANY EXERTION AND SLEPT SOUNDLY MOST OF SHIFT SINCE SHE HAD AN ACTIVE DAY. NO PAIN OR DISTRESS NOTED. PATIENT ABLE TO PRONE X2 FOR ABOUT AN HOUR EACH TIME. VSS. NSR ON THE MONITOR. UP IND IN ROOM AND GOOD OUPUT PER BSC. APPETITE IMPROVING AND ATE ABOUT 75% OF DINNER. XANAX GIVEN X1 FOR ANXIETY AND PATIENT IMPROVING WITH HER OWN COPING MECHANISMS WELL. NO ACUTE CONCERNS AT THIS TIME. WILL CONTINUE TO MONITOR UNTIL REPORT GIVEN TO DAYSGELACIO MONROY.
--- NOTE | 2021-03-08 12:42 | NUR ---
PT ALERT AND ORIENTED X4. ON AIRVO AT 35L AND 65% SATING LOW-MID 90'S. PRONING TOLERATED. INCENTIVE SPIROMETER EDUCATION. DESATING TO HIGH 80'S WHEN UP TO BSC OR RECLINER. ABLE TO RECOVER QUICKLY. TELE SHOWING SINUS WITH HR 70-80'S. DENIES CHEST PAIN/PRESSURE. VITAL SIGNS STABLE. PT STATES SHE IS OVERALL FEELING BETTER. STATES SHE HAS BODY ACHES AND GENERALIZED PAIN. MEDICATED PER EMAR WITH GOOD RELIEF. EATING AND DRINKNING WELL. BOWEL TONES HEARD. UP TO BSC. AT TIMES HR INCREASING TO 130-140 WHEN UP TO BSC. CALL LIGHT IN REACH. DENIES NEEDS AT THIS TIME. WILL CONTINUE TO MONITOR.
--- NOTE | 2021-03-08 17:48 | NUR ---
SHIFT SUMMARY: PT REMAINS ALERT AND ORIETNED X4. SEE PREVIOUS NOTE FOR UPDATES. NO ACUTE CHANGES. ABLE TO TITRATE DOWN TO 35L AND 60% ON AIRVO. PATIENT PRONING 2X THIS SHIFT FOR ABOUT ONE HOUR EACH. INCENTIVE SPIROMETER EDUCATION AND USAGE. PT HAD ONE EPSIODE OF NAUSEA AFTER LUNCH RELIEVED WITH ZOFRAN. STATED SHE WAS HUNGRY FOR DINNER AND THAT HER APPETITE HAS INCREASED. VITAL SIGNS REMAIN STABLE. WILL CONTINUE TO MONITOR AND REPORT OFF. USING CALL LIGHT APPROPRIATELY.
[2021-03-09 04:22] LABS: BASOPHILS ABSOLUTE AUTO 0.03 K/mm3 (0.00-0.23); BASOPHILS PERCENT AUTO 0 % (0-2); EOSINOPHILS ABSOLUTE AUTO 0.07 K/mm3 (0.00-0.68); EOSINOPHILS PERCENT AUTO 1 % (0-6); Hematocrit 40.8 % (33.0-51.0); Hemoglobin 13.6 g/dL (11.5-16.0); IMMATURE GRAN ABSOLUTE AUTO 0.61 K/mm3 (0.00-0.10); IMMATURE GRAN PERCENT AUTO 5 % (0-1); LYMPHOCYTES ABSOLUTE AUTO 1.68 K/mm3 (0.84-5.20); LYMPHOCYTES PERCENT AUTO 13 % (21-46); MONOCYTES ABSOLUTE AUTO 0.66 K/mm3 (0.16-1.47); MONOCYTES PERCENT AUTO 5 % (4-13); Mean Corpuscular HGB 28.5 pg (26.0-34.0); Mean Corpuscular HGB Conc 33.3 g/dL (31.5-36.5); Mean Corpuscular Volume 85 fL (80-100); Mean Platelet Volume 9.8 fL (9.1-12.4); NEUTROPHILS ABSOLUTE AUTO 9.69 K/mm3 (1.96-9.15); NEUTROPHILS PERCENT AUTO 76 % (41-73); Platelet Count 277 K/mm3 (150-400); RDW Standard Deviation 39.7 fL (35.1-46.3); Red Blood Cell Count 4.78 M/mm3 (3.80-5.20); White Blood Cell Count 12.74 K/mm3 (4.00-11.30)
[2021-03-09 04:48] LABS: Alanine Aminotransfer (ALT/SGP 39 U/L (12-78); Albumin, Blood 2.7 g/dL (3.4-5.0); Albumin/Globulin Ratio 0.8 (0.8-1.8); Alk Phos 47 U/L (50-136); Anion Gap 4 mmol/L (6-16); Aspartate Aminotrans (AST/SGOT 21 U/L (12-37); Bilirubin, Total 0.2 mg/dL (0.1-1.0); Blood Urea Nitrogen 14 mg/dL (8-24); Bun/Creatinine Ratio 26.9 (12.0-20.0); CO2, Blood 29 mmol/L (21-32); Calcium, Blood 8.7 mg/dL (8.5-10.1); Chloride, Blood 103 mmol/L (98-108); Creatinine, Blood 0.52 mg/dL (0.40-1.00); Globulin, Blood 3.6 g/dL (2.2-4.0); Glomerular Filtration Rate >60 (60-); Glucose, Blood 172 mg/dL (70-99); Magnesium, Blood 2.3 mg/dL (1.6-2.4); Potassium, Blood 3.9 mmol/L (3.5-5.5); Sodium, Blood 136 mmol/L (136-145); Total Protein, Blood 6.3 g/dL (6.4-8.2)
--- NOTE | 2021-03-09 06:36 | NUR ---
SHIFT SUMMARY ZAIRA HAD DIFFICULTY SLEEPING - SHE WAS DIAPHORETIC, SHAKING, AND C/O ALTERNATING HOT AND COLD CHILLS. PT REQUIRED TWO LINEN CHANGES DUE TO PERSPIRATION. SHE REPORTED "ICY, STABBING PAIN" IN HER JOINTS - ESPECIALLY HER LEGS AND BACK. THE PAIN WAS RELIEVED BY REGULARLY SCHEDULED PAIN MEDICATION, AND SHE SLEPT THE REMAINDER OF THE SHIFT. PT DID SLEEP PRONE. PT WILL REGULARLY DE-SAT WHEN SHE STANDS TO AMBULATE TO [facility] [place]. HER O2 SATS WILL QUICKLY GO BACK UP, ONCE SHE GETS BACK IN BED. WILL CONTINUE TO MONITOR.
--- NOTE | 2021-03-09 10:00 | NUR ---
PT ALERT AND ORIENTED X4. ON AIRVO AT 35L AND 60% THIS AM. SOB WHEN UP TO BSC OR MOVING AROUND IN BED. ANXIOUS AT TIMES. PAIN DESCRIBED ALL OVER BODY ACHES AND IN THE JOINTS. MEDICATED PER EMAR WITH GOOD RELIEF. TELE SHOWING SINUS WITH HR 70-80'S. VITAL SIGNS STABLE. DENIES CHEST PAIN/PRESSURE. BOWEL TONES HEARD. UP TO BSC. EATING WELL. CALL LIGHT IN REACH. DENIES NEEDS AT THIS TIME.
--- NOTE | 2021-03-09 14:01 | NUR ---
UPDATE: ONE EPISODE OF INCREASED ANXIETY THIS AFTERNOON. MEDICATED PER EMAR WITH PRN XANAX WITH GOOD RELIEF. PT NOW RESTING IN BED. WORKING ON INCENTIVE SPIROMETER AND PRONING ON AND OFF THROUGHOUT THE AFTERNOON. TITRATED DOWN ON AIRVO. NOW AT 35L AND 50%. WILL CONTINUE TO MONITOR.
--- NOTE | 2021-03-09 18:28 | NUR ---
SHIFT SUMMARY: SEE PREVIOUS NOTES FOR UPDATES. PT REMAINS ALERT AND ORIENTED X4. TELE DISCONTINUED. VITALS REMAIN STABLE. PT EATING WELL. USING BEDSIDE COMMODE. AIRVO SETTINGS AT 35L AND 50%. DESATS WHEN MOVING AROUND TO MID 80'S AND LOW 80'S WHEN WORKING WITH PT. ABLE TO RECOVER WITHIN 3 MIN. ONE EPISODE THIS EVENING WHERE PT WAS COMPLAINING OF "ANXIETY, CHILLS, BODY ACHES AND PAIN" VITAL SIGNS STABLE. NO TEMP. XANAX GIVEN PER EMAR WITH LITTLE RELIEF. PT REQUESTING PAIN MEDS. DILAUDID GIVEN PER EMAR WITH GOOD RELIEF. PT ABLE TO NAP AND FEELING MUCH BETTER. UP AT SIDE OF BED FOR DINNER. PT PRONING OFF AND ON TODAY. WILL CONTINUE TO MONITOR AND REPORT OFF.
--- NOTE | 2021-03-10 02:16 | NUR ---
PT REPORTS "ICY, COLD STABBING PAINS" IN HER BACK/LEGS/NECK JOINTS. SHAKING WITH COLD SWEATS. AFEBRILE. TREATED ANXIETY WITH DEEP BREATHING EXERCISES AND PRN ATIVAN. PT REQUESTED DILAUDID PO, WHICH WORKED FOR HER ON DAY SHIFT. PT IS ABLE TO SLEEP, MAINTAINING SATS OVER 90% ON 35LPM OF OXYGEN VIA AIRVO. SHE WILL DE-SAT TO THE HIGH 80'S WHEN STANDING TO AMBULATE TO THE BSC. WILL CONTINUE TO MONITOR.
[2021-03-10 04:00] LABS: BASOPHILS ABSOLUTE AUTO 0.03 K/mm3 (0.00-0.23); BASOPHILS PERCENT AUTO 0 % (0-2); EOSINOPHILS ABSOLUTE AUTO 0.05 K/mm3 (0.00-0.68); EOSINOPHILS PERCENT AUTO 0 % (0-6); Hemoglobin 13.4 g/dL (11.5-16.0); IMMATURE GRAN ABSOLUTE AUTO 0.43 K/mm3 (0.00-0.10); IMMATURE GRAN PERCENT AUTO 4 % (0-1); LYMPHOCYTES PERCENT AUTO 17 % (21-46); MONOCYTES ABSOLUTE AUTO 0.69 K/mm3 (0.16-1.47); MONOCYTES PERCENT AUTO 6 % (4-13); Mean Corpuscular HGB 27.8 pg (26.0-34.0); Mean Corpuscular HGB Conc 32.7 g/dL (31.5-36.5); Mean Corpuscular Volume 85 fL (80-100); Mean Platelet Volume 9.9 fL (9.1-12.4); NEUTROPHILS ABSOLUTE AUTO 8.28 K/mm3 (1.96-9.15); NEUTROPHILS PERCENT AUTO 72 % (41-73); Platelet Count 310 K/mm3 (150-400); RDW Standard Deviation 39.4 fL (35.1-46.3); Red Blood Cell Count 4.82 M/mm3 (3.80-5.20); White Blood Cell Count 11.48 K/mm3 (4.00-11.30)
[2021-03-10 04:34] LABS: Anion Gap 6 mmol/L (6-16); Blood Urea Nitrogen 16 mg/dL (8-24); Bun/Creatinine Ratio 29.7 (12.0-20.0); CO2, Blood 29 mmol/L (21-32); Calcium, Blood 8.6 mg/dL (8.5-10.1); Chloride, Blood 101 mmol/L (98-108); Creatinine, Blood 0.54 mg/dL (0.40-1.00); Glomerular Filtration Rate >60 (60-); Glucose, Blood 176 mg/dL (70-99); Magnesium, Blood 2.4 mg/dL (1.6-2.4); Phosphorus, Blood 3.8 mg/dL (2.5-4.9); Potassium, Blood 4.1 mmol/L (3.5-5.5); Sodium, Blood 136 mmol/L (136-145)
--- NOTE | 2021-03-10 19:24 | NUR ---
SHIFT SUMMARY PT ALERT AND ORIENTED X 4. IND IN ROOM. OXYGEN SATURATION MAINTAINED ABOVE 90% ON 50% FIO2 AND 35 L ON AIRVO. HR STABLE. BP STABLE. NO CP OR PRESSURE. PT REPORTS PAIN T/O SHIFT. MEDICATED PER EMAR. WILL CONT TO MONITOR UNTIL REPORT GIVEN TO NIGHTSHIFT RN.
[2021-03-11 03:49] LABS: BASOPHILS ABSOLUTE AUTO 0.03 K/mm3 (0.00-0.23); BASOPHILS PERCENT AUTO 0 % (0-2); EOSINOPHILS ABSOLUTE AUTO 0.02 K/mm3 (0.00-0.68); EOSINOPHILS PERCENT AUTO 0 % (0-6); Hematocrit 39.9 % (33.0-51.0); Hemoglobin 13.2 g/dL (11.5-16.0); IMMATURE GRAN ABSOLUTE AUTO 0.26 K/mm3 (0.00-0.10); IMMATURE GRAN PERCENT AUTO 2 % (0-1); LYMPHOCYTES ABSOLUTE AUTO 2.48 K/mm3 (0.84-5.20); LYMPHOCYTES PERCENT AUTO 19 % (21-46); MONOCYTES ABSOLUTE AUTO 0.78 K/mm3 (0.16-1.47); MONOCYTES PERCENT AUTO 6 % (4-13); Mean Corpuscular HGB 28.3 pg (26.0-34.0); Mean Corpuscular HGB Conc 33.1 g/dL (31.5-36.5); Mean Corpuscular Volume 85 fL (80-100); Mean Platelet Volume 9.8 fL (9.1-12.4); NEUTROPHILS ABSOLUTE AUTO 9.47 K/mm3 (1.96-9.15); NEUTROPHILS PERCENT AUTO 73 % (41-73); Platelet Count 293 K/mm3 (150-400); RDW Standard Deviation 39.7 fL (35.1-46.3); Red Blood Cell Count 4.67 M/mm3 (3.80-5.20); White Blood Cell Count 13.04 K/mm3 (4.00-11.30)
[2021-03-11 04:08] LABS: Anion Gap 5 mmol/L (6-16); Blood Urea Nitrogen 14 mg/dL (8-24); Bun/Creatinine Ratio 28.7 (12.0-20.0); CO2, Blood 30 mmol/L (21-32); Calcium, Blood 8.8 mg/dL (8.5-10.1); Chloride, Blood 100 mmol/L (98-108); Creatinine, Blood 0.49 mg/dL (0.40-1.00); Glomerular Filtration Rate >60 (60-); Glucose, Blood 170 mg/dL (70-99); Magnesium, Blood 2.4 mg/dL (1.6-2.4); Potassium, Blood 3.9 mmol/L (3.5-5.5); Sodium, Blood 135 mmol/L (136-145)
--- NOTE | 2021-03-11 05:11 | NUR ---
SHIFT SUMMARY PATIENT IS ALERT AND ORIENTED X4. INDEPENDENT IN ROOM TO BEDSIDE COMMODE. OXYGEN REQUIREMENTS INCREASED TO PATIENT NEEDING 40L 60% FI02 VIA AIRVO AFTER PATIENT HAD A PANIC ATTACK, UNABLE TO TITRATE DOWN ONCE PATIENT ASLEEP DUE TO 02 SATS 90-94%. PRN PAIN MEDICATION GIVEN. FULL BED CHANGE DONE, PT STATES SHE IS SWEATING THROUGH HER SHEETS. CALL LIGHT IN REACH.
--- NOTE | 2021-03-11 10:49 | NUR ---
ZENAIDA SPOKE WITH PULMONOLOGY REGARDING PT'S OXYGEN DEMANDS. SADDLE LINING STITCHER ORDERS TO HAVE PT ATTEMPT TO MAINTAINED OXYGEN SATURATION WITH NON-REBREATHER MASK AND NC. RESPIRATORY CARE INFORMED. WILL UPDATE AFTER TRIAL.
--- NOTE | 2021-03-11 19:28 | NUR ---
SHIFT SUMMARY PT ALERT AND ORIENTED X 4. HR STABLE. BP STABLE. OXYGEN SATURATION MAINTAINED ABOVE 90% ON 40 L AND 60% AIRVO. PULOMONOLIST RECOMMENDS TO HAVE PT ATTEMPT TO MAINTAIN OXYGEN SATURATION WITH VENTURI MASK AND NC. RT NOTIFIED. PRISCILLA RN TO ATTEMPT TRIAL WITH RESPIRATORY THERAPY. PT IND IN ROOM NEEDED.PT'S AT BEDSIDE T/O SHIFT. POWERGLIDE DRESSING CHANGED D/T PT'S DIAPHORETIC STATE. PT REPORTS PAIN. MEDICATED PER EMAR, PT REPORTS RELIEF. REPORT GIVEN TO ELIANA WALL.
[2021-03-12 04:35] LABS: BASOPHILS ABSOLUTE AUTO 0.04 K/mm3 (0.00-0.23); BASOPHILS PERCENT AUTO 0 % (0-2); EOSINOPHILS ABSOLUTE AUTO 0.02 K/mm3 (0.00-0.68); EOSINOPHILS PERCENT AUTO 0 % (0-6); Hematocrit 39.8 % (33.0-51.0); Hemoglobin 13.2 g/dL (11.5-16.0); IMMATURE GRAN ABSOLUTE AUTO 0.21 K/mm3 (0.00-0.10); IMMATURE GRAN PERCENT AUTO 1 % (0-1); LYMPHOCYTES ABSOLUTE AUTO 2.65 K/mm3 (0.84-5.20); LYMPHOCYTES PERCENT AUTO 18 % (21-46); MONOCYTES ABSOLUTE AUTO 0.79 K/mm3 (0.16-1.47); MONOCYTES PERCENT AUTO 5 % (4-13); Mean Corpuscular HGB 28.6 pg (26.0-34.0); Mean Corpuscular HGB Conc 33.2 g/dL (31.5-36.5); Mean Corpuscular Volume 86 fL (80-100); NEUTROPHILS ABSOLUTE AUTO 11.35 K/mm3 (1.96-9.15); NEUTROPHILS PERCENT AUTO 75 % (41-73); Platelet Count 277 K/mm3 (150-400); Red Blood Cell Count 4.61 M/mm3 (3.80-5.20); White Blood Cell Count 15.06 K/mm3 (4.00-11.30)
--- NOTE | 2021-03-12 05:07 | NUR ---
SHIFT SUMMARY PATIENT IS ALERT AND ORIENTED X4, ANXIOUS AT TIMES, WORKED ON DISTRACTION TECHNIQUES TO HELP AND MEDICATED PER EMAR. RESPIRATORY THERAPY TRIED VENTURI MASK INSTEAD OF THE AIRVO WITH PATIENT AND PATIENT DID NOT TOLERATE IT WELL, THEY THEN TRIED A HIGH FLOW NASAL CANULA. 02 SATS CURRENTLY 95% ON 6L VIA HIGH FLOW NC. PATIENT PRONING MOST THE NIGHT. VSS, NO ACUTE CHANGES. CALL LIGHT IN REACH.
[2021-03-12 05:28] LABS: Alanine Aminotransfer (ALT/SGP 68 U/L (12-78); Albumin, Blood 2.8 g/dL (3.4-5.0); Albumin/Globulin Ratio 0.8 (0.8-1.8); Alk Phos 49 U/L (50-136); Anion Gap 8 mmol/L (6-16); Aspartate Aminotrans (AST/SGOT 27 U/L (12-37); Bilirubin, Total 0.2 mg/dL (0.1-1.0); Blood Urea Nitrogen 14 mg/dL (8-24); Bun/Creatinine Ratio 29.1 (12.0-20.0); C-REACTIVE PROTEIN, EXT RANGE <0.290 mg/dL (0.000-0.300); CO2, Blood 26 mmol/L (21-32); Calcium, Blood 8.7 mg/dL (8.5-10.1); Chloride, Blood 102 mmol/L (98-108); Creatinine, Blood 0.48 mg/dL (0.40-1.00); Globulin, Blood 3.3 g/dL (2.2-4.0); Glomerular Filtration Rate >60 (60-); Glucose, Blood 234 mg/dL (70-99); Magnesium, Blood 2.3 mg/dL (1.6-2.4); Phosphorus, Blood 3.4 mg/dL (2.5-4.9); Potassium, Blood 3.8 mmol/L (3.5-5.5); Sodium, Blood 136 mmol/L (136-145); Total Protein, Blood 6.1 g/dL (6.4-8.2); Troponin I <0.015 ng/mL (0.000-0.040)
--- NOTE | 2021-03-12 19:47 | NUR ---
SHIFT SUMMARY PT ALERT AND ORIENTED X 4. HR STABLE. BP STABLE. NO CP OR PRESSURE. OXYGEN SATURATION MAINTAINED ABOVE 90% ON 9 L OF OXYGEN VIA HIGH FLOW NC. RASH ON PT'S WRIST. PT BELIEVES D/T BAND ON WRIST. BARRIER CREAM APPLIED. PT REPORTS SOME RELIEF. PT IND IN ROOM TO BATHROOM. PT REPORTS PAIN, MEDICATED PER EMAR. PT REQUESTS PHENERGAN FOR NAUSEA/ABD DISCOMFORT. STATES SHE TAKES IT AT HOME. PHYSICIAN NOTIFIED. MEDICAITON ORDERED AND GIVEN PER EMAR. REPORT GIVEN TO ELIANA WALL.
[2021-03-13 03:43] LABS: Hematocrit 40.1 % (33.0-51.0); Hemoglobin 13.2 g/dL (11.5-16.0); Mean Corpuscular HGB 28.4 pg (26.0-34.0); Mean Corpuscular HGB Conc 32.9 g/dL (31.5-36.5); Mean Corpuscular Volume 86 fL (80-100); Mean Platelet Volume 10.3 fL (9.1-12.4); Platelet Count 285 K/mm3 (150-400); RDW Coefficient Variation 13.1 % (11.7-14.2); Red Blood Cell Count 4.64 M/mm3 (3.80-5.20); White Blood Cell Count 14.04 K/mm3 (4.00-11.30)
[2021-03-13 04:01] LABS: Anion Gap 5 mmol/L (6-16); Blood Urea Nitrogen 15 mg/dL (8-24); Bun/Creatinine Ratio 27.9 (12.0-20.0); CO2, Blood 30 mmol/L (21-32); Chloride, Blood 101 mmol/L (98-108); Creatinine, Blood 0.54 mg/dL (0.40-1.00); Glomerular Filtration Rate >60 (60-); Glucose, Blood 219 mg/dL (70-99); Potassium, Blood 4.3 mmol/L (3.5-5.5); Sodium, Blood 136 mmol/L (136-145)
--- NOTE | 2021-03-13 05:15 | NUR ---
SHIFT SUMMARY PATIENT IS ALERT AND ORIENTED X4. ABLE TO WALK TO THE BATHROOM AT TIMES, INDEPENDENT IN THE ROOM. MEDICATED FOR ANXIETY, NAUSEA, AND PAIN PER EMAR. 02 SATS 94% ON 6L VIA NC. PATIENT COMPLIANT WITH PRONING. VSS, NO ACUTE CHANGES. CALL LIGHT IN REACH.
[2021-03-13] MEDS ORDERED: ACET325 PO (12:01)
[2021-03-13] MEDS ORDERED: BENMENLOZ MT (12:02)
[2021-03-13] MEDS ORDERED: BUSP5 PO (12:05)
[2021-03-13] MEDS ORDERED: BISA10S PR (12:05)
[2021-03-13] MEDS ORDERED: DEXA2 PO (12:19)
[2021-03-13] MEDS ORDERED: NYSTRIT TOP (13:54)
[2021-03-13] MEDS ORDERED: Q-Tussin100 MG/5 M PO (13:54)
[2021-03-13] MEDS ORDERED: ONDA4ODT MM (13:54)
[2021-03-13] MEDS ORDERED: MIRALAX17 GM PO (13:55)
[2021-03-13] MEDS ORDERED: K-Dur 20 meq T20 MEQ PO (13:55)
[2021-03-13] MEDS ORDERED: NASAL SPRAY88 ML (14:01)
[2021-03-13] MEDS ORDERED: LACT PO (14:02)
--- NOTE | 2021-03-13 16:46 | NUR ---
UPDATE PHYSICIAN NOTIFIED OF NOTES FROM [facility] FOR HOME O2 EVAL. PHYSICIAN NOTIFIED OF PT'S INCREASE IN HR IN 120'S-130'S. MEDICATION ORDERED. WILL GIVE IF HR SUSTAINS ABOVE 100. PLAN IS TO CONT TO DISHCARGE PT TODAY. PT BELIEVES HIGH HR IS LIKELY D/T ANXIETY. NO CHEST PAIN OR PRESSURE.
--- NOTE | 2021-03-13 18:51 | NUR ---
SHIFT SUMMARY/DISCHARGE PT ALERT AND ORIETNED X 4. HR STABLE. TACHY AT TIMES, PHYSICIAN NOTIFIED. OXYGEN SATURATION MAINTAINED ABOVE 92% ON 8-9 L OF OXYGEN VIA NC. PT IND IN ROOM TOLERATED. HOME O2 EVAL DONE BY RT, SEE NOTES. QUENTIN BROUGHT PT HOME 02 TANK TO PT'S ROOM. PT PROVIDED WITH ALL DISCHARGE INSTRUCTIONS PROVIDED FROM PHYSICIAN. PT'S MEDICATIONS FAXED TO PT'S PREFERRED PHARMACY. POWERGLIDE REMOVED. TELE REMOVED. EKG DONE, PT IN NSR. PT'S AT BEDSIDE TO GATHER BELONGINGS. PT'S PICKED UP PT AT [facility]. SHIPWRIGHT SUPERVISOR BROUGHT PT OUT WITH OXYGEN AT 8 L. OXYGEN LEVEL ASSESSED PRIOR TO DISHCARGE, STABLE AT 93%. PT BROUGHT TO VEHICLE BY SHIPWRIGHT SUPERVISOR BY WHEELCHAIR.
== END 2021-03-13 18:26 | disposition home or self-care (01) | DRG 871 ==
LOC: ER 11:21 → MEDS 16:38 → PCU 16:38 → MEDS 18:25 → PCU 03-02 11:54
PROVIDERS: Emergency Medicine; Family Medicine; Internal Medicine; Internal Medicine Critical Care Medicine; Internal Medicine Pulmonary Disease; Nurse Practitioner Acute Care; ADMIT Internal Medicine
PROC: 8E0ZXY6 Isolation (ICD-10-PCS; principal; 2021-03-02)
PROC: XW033E5 Introduction of Remdesivir Anti-infective into Peripheral Vein, Percutaneous Approach, New Technology Group 5 (ICD-10-PCS; 2021-03-02)
PROC: 3E0333Z Introduction of Anti-inflammatory into Peripheral Vein, Percutaneous Approach (ICD-10-PCS; 2021-03-02)
DX: A41.89 Other specified sepsis (principal); J96.01 Acute respiratory failure with hypoxia; U07.1 COVID-19; J12.82 Pneumonia due to coronavirus disease 2019; J15.9 Unspecified bacterial pneumonia; E87.2 Acidosis; E87.1 Hypo-osmolality and hyponatremia; G89.4 Chronic pain syndrome; F41.8 Other specified anxiety disorders; K21.9 Gastro-esophageal reflux disease without esophagitis; M79.7 Fibromyalgia; Z86.718 Personal history of other venous thrombosis and embolism; E66.01 Morbid (severe) obesity due to excess calories; F90.9 Attention-deficit hyperactivity disorder, unspecified type; G43.909 Migraine, unspecified, not intractable, without status migrainosus; Z90.49 Acquired absence of other specified parts of digestive tract; Z98.890 Other specified postprocedural states; Z87.891 Personal history of nicotine dependence; Z79.899 Other long term (current) drug therapy; E87.6 Hypokalemia
CPT/HCPCS: 36415; 36600; 71045; 80048; 80053; 80069; 82728; 82803; 83605; 83615; 83735; 84100; 84132; 84145; 84484; 84702; 85025; 85027; 85379; 86140; 86141; 87040; 87070; 87205; 93005; 93010; 94660; 94761; 94762; 96374; 96375; 97110; 97162; 99285-25; A9270; C1751; J0696; J1100; J1447; J2405; J3480; J7050

== ENCOUNTER → 2021-04-06 | Outpatient (CLI) | payer OTHER | END | disposition home or self-care (01) | LOC: LAB SHORT 14:00 | DX: E87.6 Hypokalemia (principal) ==

== ENCOUNTER → 2022-06-14 | Outpatient (CLI) | payer OTHER ==
[~2022-06-14] MED LIST changes: +ALBUTEROL INH; +AMITRIPTYLINE H25 MG PO; +Amphetamine Sal20 MG PO; +BACLOFEN10 M4 PO; +BENMENLOZ MT; +BISA10S PR; +BUSP5 PO; +DEXA2 PO; +DEXILANT60 MG PO; +Dilaudid 2 mg Ta2 MG PO; +K-Dur 20 meq T20 MEQ PO; +LACT PO; +MIRALAX17 GM PO; +MS Contin15 MG PO; +NASAL SPRAY88 ML; +NYSTRIT TOP; +ONDA4ODT MM; +ONDA4ODT PO; +PAXIL40 M1 PO; +PSEUDOEPHEDRINE30 M1 PO; +Q-Tussin100 MG/5 M PO; +Ventolin/Prove6.7 GM INH; +XARELTO20 MG PO
[2022-06-15 16:08] LABS: HPV 16 Negative (Negative); HPV 18 Negative (Negative); HPV OTHER HR TYPES Negative (Negative)
== END | disposition home or self-care (01) ==
LOC: LAB 13:45 → LAB SHORT 13:45
PROVIDERS: Obstetrics & Gynecology
DX: Z01.419 Encounter for gynecological examination (general) (routine) without abnormal findings (principal)
CPT/HCPCS: 87624; G0123

== ENCOUNTER → 2025-05-27 | Outpatient (CLI) | payer OTHER | LOC: LAB 17:50 → LAB SHORT 17:50 | PROVIDERS: Obstetrics & Gynecology | DX: Z01.419 Encounter for gynecological examination (general) (routine) without abnormal findings (principal) | CPT/HCPCS: 87624; G0145 ==